=== PATIENT | female | born 1990 | race Caucasian/White ===

== ENCOUNTER → 2020-12-19 11:52 | Outpatient (CLI) | payer OTHER, SELFPAY ==
[2020-12-19 12:45] LABS: Hematocrit 42.2 % (36-46); Hemoglobin 13.7 g/dL (12.0-16.0); Mean Corpuscular HGB Conc 32.5 % (30-36); Mean Corpuscular Hemoglobin 28.1 PG (26-34); Mean Corpuscular Volume 86.2 fL (80-100); Platelet Count 255 X10^3/uL (150-400); Red Blood Cell Count 4.89 X10^6/uL (4.0-5.2); Red Cell Distribution Width 14.2 % (11.6-14.8); White Blood Cell Count 7.6 X10^3/uL (4.5-11.0)
[2020-12-19 12:56] LABS: Alanine Aminotransferase 15 IU/L (<35); Albumin 4.6 g/dL (3.5-5.0); Albumin Globulin Ratio 1.3 (1.0-2.8); Alkaline Phosphatase 52 U/L (38-126); Aspartate Aminotransferase 25 IU/L (14-36); BUN Creatinine Ratio 24.2 (6-22); Bilirubin Total 0.5 mg/dL (0.2-1.3); Blood Urea Nitrogen 16 mg/dL (7-17); Calcium 9.4 mg/dL (8.4-10.2); Carbon Dioxide 34 mmol/L (22-32); Chloride 100 mmol/L (98-107); Cholesterol 206 mg/dL (140-199); Estimated Glomerular Filt Rate > 60.0 mL/min (>60); Globulin 3.6 g/dL (1.7-4.1); Glucose 101 mg/dL (70-100); HDL Cholesterol 77 mg/dL (40-60); HEMOLYSIS < 15 (0-50); LDL Cholesterol Calculated 114 mg/dL (<100); Potassium 4.1 mmol/L (3.4-5.1); Sodium 136 mmol/L (137-145); Total Protein 8.2 g/dL (6.3-8.2); Triglycerides 75 mg/dL (35-150)
[2020-12-19 13:31] LABS: TSH w/ Reflex to FT4 1.92 uIU/mL (0.47-4.68)
== END ==
PROVIDERS: PCP Nurse Practitioner Family; Referring Provider Nurse Practitioner Family; Visit Provider Nurse Practitioner Family
DX: Z00.00 Encounter for general adult medical examination without abnormal findings (principal); F32.9 Major depressive disorder, single episode, unspecified; F41.9 Anxiety disorder, unspecified; Z13.6 Encounter for screening for cardiovascular disorders
CPT/HCPCS: 36415; 80053; 80061; 84443; 85027

== ENCOUNTER → 2021-03-19 11:26 | Outpatient (CLI) | payer OTHER, SELFPAY ==
[2021-03-19 12:30] LABS: COVID19 -Nasal RAPID Negative (Negative)
== END ==
PROVIDERS: PCP Nurse Practitioner Family; Visit Provider Physician Assistant
DX: J02.9 Acute pharyngitis, unspecified (principal)
CPT/HCPCS: 87070; 87077; 87147; 87635

== ENCOUNTER → 2021-04-29 16:00 | Outpatient (CLI) | payer OTHER, SELFPAY | PROVIDERS: PCP Nurse Practitioner Family; Referring Provider Family Medicine; Visit Provider Family Medicine | DX: J02.9 Acute pharyngitis, unspecified (principal) | CPT/HCPCS: 87070; 87077; 87147 ==

== ENCOUNTER → 2021-07-29 15:34 | Outpatient (CLI) | payer OTHER, SELFPAY ==
[2021-07-29 17:00] LABS: COVID19 -Nasal RAPID Negative (Negative)
== END ==
PROVIDERS: PCP Nurse Practitioner Family; Visit Provider Specialist
DX: Z01.812 Encounter for preprocedural laboratory examination (principal); Z20.822 Contact with and (suspected) exposure to COVID-19
CPT/HCPCS: 87635

== ENCOUNTER 2021-07-30 11:10 | Day surgery (SDC) | payer OTHER, SELFPAY ==
[2021-07-29 11:51] VITALS: BMI 21.2
[2021-07-30] VITALS (7 sets, daily range): BP systolic 90–99; BP diastolic 58–68; PULSE 55–74; RESP 12–16; TEMP 36.6–36.9; O2SAT 96–100; BMI 21.2
--- NOTE | 2021-07-30 | PATH_ITS ---
[facility] Accession Number: [id number] . 01 Material submitted: . product of conception - PRODUCTS OF CONCEPTION . 01 Diagnosis: Uterine Contents: Immature chorionic villi with hydropic degeneration. Decidua and gestational endometrium. Negative for changes diagnostic of gestational trophoblastic disease. [facility] 08/01/2021 1814 Local . 01 Electronically signed: . Monserrat Grijalva MD, Pathologist NPI- [id number] . 01 Gross description: . The specimen is received in formalin, labeled products of conception and consists of multiple gould-pink fragments of soft tissue measuring 6.0 x 3.0 x 1.5 cm in aggregate. Chorionic villi are identified. No parts are identified. Filling Machine Operator sections are submitted in cassettes A1-A2. ([id number]) /MRV 07/31/2021 0950 Local . 01 Pathologist provided ICD-10: O02.1 . 01 CPT . 965681 Performed at: 01 [facility] [address] [place] [address] [address], [place], [place] [id number] MD Chago Santoyo MD Phone: [phone]
--- NOTE | 2021-07-30 08:49 | P.HPOB_ITS ---
History of Present Illness History of Present Illness Reason for admission: incomplete Narrative: Janelle Godwin is a 31 year old female found to have a nonviable fetus by ultrasound here for suction D&C [facility] Medical History (Updated 07/26/21 @ 17:09 by Luana Berry MD) Anxiety Depression Pharyngitis Social History household members: spouse Smoking Status: Never smoker second hand exposure: No alcohol intake: current substance use type: does not use Meds Home Medications and Allergies Home Medications Medication Instructions Recorded Confirmed Type oxycodone-acetaminophen 5 mg-325 1 tab PO Q4-6H PRN #14 tab 07/26/21 07/29/21 Rx mg tablet Allergies Allergy/AdvReac Type Severity Reaction Status Date / Time No Known Drug Allergies Allergy Verified 07/30/21 11:25 Review of Systems Review of Systems Narrative: Patient with mild headache and mild nausea. No vaginal bleeding. Mild cramping. No fevers. ROS: Yes All systems reviewed with the patient and are negative except as otherwise documented Exam Narrative Exam Narrative: HEENT exam within normal limits. Lungs are clear to auscultation percussion. Heart is regular rate and rhythm no S3-S4 murmurs. Abdomen is soft, nontender. Normal external genitalia, vagina, cervix. Uterus is 6 week size. Extremities without edema Assessment & Plan Assessment and plan (1) Incomplete miscarriage: Status: Acute Assessment & Plan narrative: Suction D&C for incomplete miscarriage COVID-19 COVID-19 status: Negative Result date/Date tested (Pos, Neg/Pending): 07/29/21 Time Spent With Patient Critical Care time: I spent a total of [] minutes of critical care time on this patient's care today; this time is exclusive of procedural time.
[2021-07-30] MEDS: LACTATED RINGERS 1,000 ML 100 ML IV (11:43)
--- NOTE | 2021-07-30 12:15 | PM.PREOP ---
Pre-operative Note COVID-19 COVID-19 status: Negative Result date/Date tested (Pos, Neg/Pending): 07/29/21 Interval Note History & Physical reviewed/Exam performed by Physician: Yes Changes to H&P: No
--- NOTE | 2021-07-30 13:01 | SUR.OPER ---
Lithotomy on padded OR bed, head on pillow, arms secured on padded arm boards at <90 degrees abduction. Legs secured in padded yellow fins stirrups.
--- NOTE | 2021-07-30 13:40 | PM.OP.1 ---
Operative Date/Time/Diagnoses Date of procedure: 07/30/21 Time of procedure: 13:40 Pre-op diagnosis: Incomplete miscarriage Post-op diagnosis: same Procedure & Clinicians Procedure: Suction dilation and curettage Same procedure as scheduled: Yes Indications: Incomplete miscarriage approximately 6 7 weeks gestation Surgeon: Luana Berry Click Yes if Unassisted: Yes Anesthesia Type: General Operative Notes Findings: Normal exam under anesthesia. Retained products of conception. Uterine cavity felt normal during curettage. Closure Type: not applicable Specimen(s): other (Uterine contents) Estimated Blood Loss (mL): 50 Blood products transfused: none Procedure in detail: Patient was brought to the operating room where she underwent general anesthesia. She was placed in low Yellofin stirrups and prepped and draped in the usual sterile fashion. A check system was reviewed with the staff in the room prior to beginning the case. No antibiotics were indicated, warming was with blankets. Pulsatile stockings were in place and functional. The bladder was drained with in and out catheter. A single-tooth tenaculum was placed on the anterior lip of the cervix and the cervix was dilated to a #8 Hegar dilator. The # 7 suction curette was placed into the uterus through the cervix and tissue removed. A sharp curettage was performed and the suction curette replaced. The patient went to recovery room in good condition. Counts of instruments and sponges were correct. Complications: none Post-operative Condition: stable Disposition: same day surgery Plan for aftercare: Home when awake and stable. Follow-up in 2 weeks with follow-up ultrasound to be sure all tissue was removed.
--- NOTE | 2021-07-30 14:50 | SUR.PHASEII ---
Pt left unit when ready and left in stable condition.
== END 2021-07-30 14:40 | disposition home or self-care (01) ==
PROVIDERS: PCP Nurse Practitioner Family; Referring Provider Specialist; Visit Provider Specialist
PROC: (CPT 58120; principal; 2021-07-30 12:15)
DX: O03.4 Incomplete spontaneous abortion without complication (principal)
CPT/HCPCS: 59812; J1100; J1885; J2405; J2704; J3010

== ENCOUNTER → 2021-08-03 11:33 | Outpatient (CLI) | payer OTHER, SELFPAY ==
[2021-08-03 11:59] LABS: Appearance Urine UA CLEAR; Bilirubin Urine UA NEGATIVE (NEGATIVE); Color Urine UA YELLOW; Glucose Urine UA NEGATIVE (Negative); Ketones Urine UA NEGATIVE (NEGATIVE); Leukocyte Esterase Urine UA NEGATIVE (NEGATIVE); Nitrite Urine UA NEGATIVE (Negative); Occult Blood Urine UA TRACE-LYSED (Negative); Protein Urine UA NEGATIVE (Negative); Specific Gravity Urine UA 1.015 (1.000-1.035); Urobilinogen Urine UA 0.2 E.U./dL (0.2)
[2021-08-03 12:05] LABS: pH Urine UA 5.5 (4.5-8.0)
== END ==
PROVIDERS: PCP Nurse Practitioner Family; Referring Provider Obstetrics & Gynecology; Visit Provider Obstetrics & Gynecology
DX: N39.0 Urinary tract infection, site not specified (principal)
CPT/HCPCS: 81003

== ENCOUNTER → 2021-09-11 09:46 | Outpatient (CLI) | payer OTHER, SELFPAY ==
[2021-09-11 10:45] LABS: COVID19 -Nasal RAPID Negative (Negative)
== END ==
PROVIDERS: PCP Nurse Practitioner Family; Visit Provider Nurse Practitioner Family
DX: J02.9 Acute pharyngitis, unspecified (principal); Z20.822 Contact with and (suspected) exposure to COVID-19
CPT/HCPCS: 87070; 87077; 87147; 87635

== ENCOUNTER → 2021-09-15 10:03 | Outpatient (CLI) | payer OTHER, SELFPAY ==
[2021-09-15 10:52] LABS: COVID19 -Nasal RAPID Negative (Negative)
== END ==
PROVIDERS: PCP Nurse Practitioner Family; Visit Provider Physician Assistant
DX: Z20.822 Contact with and (suspected) exposure to COVID-19 (principal)
CPT/HCPCS: 87635

== ENCOUNTER → 2021-10-15 09:58 | Outpatient (CLI) | payer OTHER, SELFPAY ==
[2021-10-15 11:00] LABS: COVID19 -Nasal RAPID Negative (Negative)
[2021-10-15 11:40] LABS: Mean Corpuscular HGB Conc 33.5 % (30-36); Mean Corpuscular Volume 86.6 fL (80-100); White Blood Cell Count 7.2 X10^3/uL (4.5-11.0)
[2021-10-15 12:23] LABS: Thyroid Stimulating Hormone 3.02 uIU/mL (0.47-4.68)
== END ==
PROVIDERS: PCP Nurse Practitioner Family; Referring Provider Nurse Practitioner; Visit Provider Nurse Practitioner
DX: Z20.822 Contact with and (suspected) exposure to COVID-19 (principal); F32.9 Major depressive disorder, single episode, unspecified; F41.0 Panic disorder [episodic paroxysmal anxiety]; F41.9 Anxiety disorder, unspecified; R53.83 Other fatigue
CPT/HCPCS: 36415; 80053; 84439; 84443; 84481; 85025; 87635

== ENCOUNTER → 2022-04-21 15:08 | Outpatient (CLI) | payer OTHER, SELFPAY ==
[2022-04-21 17:45] LABS: Free T4, Direct Thyroxine 1.09 ng/dL (0.78-2.19)
[2022-04-21 17:59] LABS: Thyroid Stimulating Hormone 3.41 uIU/mL (0.47-4.68)
[2022-04-21 22:48] LABS: Follicle Stimulating Hormone 2.84 mIU/mL; Luteinizing Hormone 4.79 mIU/mL
== END ==
PROVIDERS: PCP Nurse Practitioner Family; Referring Provider Obstetrics & Gynecology; Visit Provider Obstetrics & Gynecology
DX: N97.0 Female infertility associated with anovulation (principal)
CPT/HCPCS: 36415; 83001; 83002; 84439; 84443

== ENCOUNTER → 2022-05-29 16:00 | Outpatient (CLI) | payer OTHER, SELFPAY ==
[2022-05-29 17:33] LABS: HCG Quantitative /Beta subunit 30.6 mIU/mL
== END ==
PROVIDERS: PCP Nurse Practitioner Family; Referring Provider Obstetrics & Gynecology; Visit Provider Obstetrics & Gynecology
DX: N97.0 Female infertility associated with anovulation (principal); N91.2 Amenorrhea, unspecified
CPT/HCPCS: 36415; 84144; 84702

== ENCOUNTER → 2022-06-02 12:08 | Outpatient (CLI) | payer OTHER, SELFPAY ==
[2022-06-02 13:37] LABS: HCG Quantitative /Beta subunit 239.9 mIU/mL
== END ==
PROVIDERS: PCP Nurse Practitioner Family; Referring Provider Obstetrics & Gynecology; Visit Provider Obstetrics & Gynecology
DX: Z34.90 Encounter for supervision of normal pregnancy, unspecified, unspecified trimester (principal)
CPT/HCPCS: 36415; 84702

== ENCOUNTER → 2022-06-09 14:02 | Outpatient (CLI) | payer OTHER, SELFPAY ==
[2022-06-09 16:19] LABS: HCG Quantitative /Beta subunit 6357.4 mIU/mL
== END ==
PROVIDERS: PCP Nurse Practitioner Family; Referring Provider Obstetrics & Gynecology; Visit Provider Obstetrics & Gynecology
DX: O36.80X0 Pregnancy with inconclusive fetal viability, not applicable or unspecified (principal)
CPT/HCPCS: 36415; 84702

== ENCOUNTER → 2022-06-11 15:35 | Outpatient (CLI) | payer OTHER, SELFPAY ==
[2022-06-11 17:24] LABS: HCG Quantitative /Beta subunit 11574 mIU/mL
== END ==
PROVIDERS: PCP Registered Nurse Diabetes Educator; Referring Provider Obstetrics & Gynecology; Visit Provider Obstetrics & Gynecology
DX: N91.2 Amenorrhea, unspecified (principal)
CPT/HCPCS: 36415; 84702

== ENCOUNTER → 2022-07-22 09:39 | Outpatient (CLI) | payer OTHER, SELFPAY | PROVIDERS: PCP Registered Nurse Diabetes Educator; Referring Provider Obstetrics & Gynecology; Visit Provider Obstetrics & Gynecology | DX: Z34.81 Encounter for supervision of other normal pregnancy, first trimester (principal) | CPT/HCPCS: 36415 ==

== ENCOUNTER → 2022-08-21 14:39 | Outpatient (CLI) | payer OTHER, SELFPAY ==
[2022-08-21 15:13] LABS: Appearance Urine UA CLEAR; Bilirubin Urine UA NEGATIVE (NEGATIVE); Color Urine UA YELLOW; Glucose Urine UA NEGATIVE (Negative); Ketones Urine UA NEGATIVE (NEGATIVE); Leukocyte Esterase Urine UA TRACE (NEGATIVE); Nitrite Urine UA NEGATIVE (Negative); Occult Blood Urine UA NEGATIVE (Negative); Protein Urine UA NEGATIVE (Negative); Urobilinogen Urine UA 0.2 E.U./dL (0.2)
[2022-08-21 15:34] LABS: Add Manual Diff / Slide Review NO; Basophils Absolute Auto 0 /uL (0-100); Basophils Percent Auto 0.3 % (0-2); Eosinophils Absolute Auto 200 /uL (0-450); Eosinophils Percent Auto 1.3 % (2-4); Hematocrit 36.3 % (36-46); Hemoglobin 12.3 g/dL (12.0-16.0); Lymphocytes Absolute Auto 2100 /uL (1100-4500); Lymphocytes Percent Auto 17.4 % (25-40); Mean Corpuscular HGB Conc 33.9 % (30-36); Mean Corpuscular Volume 88.5 fL (80-100); Monocytes Absolute Auto 800 /uL (0-900); Monocytes Percent Auto 6.8 % (3-14); Neutrophils Absolute Auto 8800 /uL (1500-7000); Neutrophils Percent Auto 74.2 % (50-75); Platelet Count 239 X10^3/uL (150-400); Red Cell Distribution Width 13.6 % (11.6-14.8); White Blood Cell Count 11.8 X10^3/uL (4.5-11.0)
[2022-08-21 15:41] LABS: RBC Urine None Seen (0-5/HPF); Squamous Epithelial Cell Urine 5-10 /HPF (0-5/HPF); WBC Urine 0-1/HPF (0-5/HPF)
[2022-08-21 15:42] LABS: Bacteria Urine Many (>30); Culture Indicated Urine Specimen Cultured
[2022-08-21 16:37] LABS: Hepatitis B Surface Antigen NEGATIVE s/c (NEGATIVE); Rubella Antibody IgG 2.7 IU/mL (>15)
[2022-08-21 16:54] LABS: HIV 1 & 2 Ab/Ag 4th Gen Combo NEGATIVE (NEGATIVE); Hep C Virus Ab w/Reflex Quant NEGATIVE s/c (NEGATIVE)
[2022-08-23 06:56] LABS: RPR Screen Non Reactive (Non Reactive)
[2022-08-23 09:36] LABS: Varicella IgG Antibody <135 index (Immune >165)
== END ==
PROVIDERS: PCP Registered Nurse Diabetes Educator; Referring Provider Obstetrics & Gynecology; Visit Provider Obstetrics & Gynecology
DX: Z34.81 Encounter for supervision of other normal pregnancy, first trimester (principal)
CPT/HCPCS: 36415; 80055; 81003; 81015; 86787; 86803; 86850; 86900; 86901; 87086; 87389

== ENCOUNTER → 2022-09-02 08:47 | Outpatient (CLI) | payer OTHER, SELFPAY ==
[2022-09-02 15:26] LABS: Urine N gonorrhoeae NOT DETECTED
[2022-09-02 15:41] LABS: Urine Chlamydia NOT DETECTED
== END ==
PROVIDERS: PCP Registered Nurse Diabetes Educator; Visit Provider Obstetrics & Gynecology
DX: Z34.82 Encounter for supervision of other normal pregnancy, second trimester (principal); Z3A.17 17 weeks gestation of pregnancy
CPT/HCPCS: 87491; 87591

== ENCOUNTER → 2022-09-02 09:05 | Outpatient (CLI) | payer OTHER, SELFPAY ==
[2022-09-04 21:37] LABS: Gest Age on Col Date 20.6 weeks (.); Insulin Dep Diabetes No (.); OSBR Risk 1IN 10000 (.); Results Report (.); Test Results *Screen Negative* (.)
== END ==
PROVIDERS: PCP Registered Nurse Diabetes Educator; Referring Provider Obstetrics & Gynecology; Visit Provider Obstetrics & Gynecology
DX: Z34.82 Encounter for supervision of other normal pregnancy, second trimester (principal); Z3A.17 17 weeks gestation of pregnancy
CPT/HCPCS: 36415; 82105; 87491; 87591

== ENCOUNTER → 2022-09-15 07:03 | Outpatient (CLI) | payer OTHER, SELFPAY ==
--- NOTE | 2022-09-15 07:05 | DI.US.S_ITS ---
PROCEDURE: US OB >= 14 WEEKS FETUS INDICATIONS: ANATOMY OUTSIDE/PRIOR DATING DATA: Last menstrual period (LMP): 04/28/2022 LMP-based estimated date of delivery (KIRSTIN): 02/02/2023 First dating scan (date and location): 07/03/2022 Estimated date of delivery (KIRSTIN) from first dating scan: 02/07/2023 The calculations are made using the working KIRSTIN of 02/07/2023. TECHNIQUE: Real-time scanning was performed of the fetus, with image documentation and biometric measurements. Endovaginal scanning: Not indicated COMPARISON: [facility], , OB >= 14 WEEKS FETUS, 09/02/2022, 9:04. FINDINGS: General: A single living intrauterine gestation is present. Presentation: Breech Placenta: Placental position is anterior, without previa. Amniotic fluid index: 13.0 cm, normal range is 5-24 cm. Single deepest vertical pocket is 3.6 cm. heart rate: 145 beats per minute. Maternal cervical canal: 4.0 cm long. Normal lower limit is 2.5 cm. biometrics: Biparietal diameter: 4.4 cm, 19 weeks, 2 days. Head circumference: 16.7 cm, 19 weeks, 3 days. Abdominal circumference: 14.8 cm, 20 weeks, 1 day. Femur length: 2.7 cm, 18 weeks, 3 days. Clinically estimated gestational age: 19 weeks, 2 days. Composite gestational age from present scan: 19 weeks, 2 days. Estimated weight and percentile: 285 g, 46%. Anatomic survey: Neuro: Ventricles are non-dilated at less than 10 mm. Cisterna magna is normal at 3-11 mm. Cerebellum is normal in size and morphology. Nuchal skin fold: Normal at less than 6 mm between 14-21 weeks gestational age. Face: Nose and lips, facial profile are normal. Spine: No evidence for spina bifida. Heart: 4-chambered heart is present, with normal ventricular outflow tracts. Diaphragm: Diaphragm is intact. Stomach: Left-sided stomach is present. Kidneys: No hydronephrosis. Normal is less than 5 mm in 2nd trimester, less than 7 mm in 3rd trimester. Cord: 3-vessel cord has orthotopic insertion. Bladder: Normal in size. Extremities: All 4 extremities identified. IMPRESSION: 1. Single live intrauterine gestation with fetus in breech presentation. heart rate is 145 beats per minute. Normal amount of amniotic fluid. Normal growth. Estimated weight is at 46%. 2. Normal anatomic survey. We strive to produce accurate, complete, and clear reports of imaging services. To assist us in improving patient care, this report was composed using standard report templates and voice recognition software. Therefore, it may contain abnormal punctuation, insertions and/or omissions. Occasional wrong-word or sound-alike substitutions may occur. Though we review the report and make efforts to correct it, we do recommend that the report be read carefully in proper context to recognize any text inaccuracies. Dictated by: Axel Silva M.D. on 09/15/2022 at 9:27 Approved by: Axel Silva M.D. on 09/15/2022 at 9:29
== END ==
PROVIDERS: PCP Registered Nurse Diabetes Educator; Referring Provider Obstetrics & Gynecology; Visit Provider Obstetrics & Gynecology
DX: Z34.82 Encounter for supervision of other normal pregnancy, second trimester (principal); Z3A.19 19 weeks gestation of pregnancy
CPT/HCPCS: 76811

== ENCOUNTER → 2022-10-17 09:02 | Outpatient (CLI) | payer OTHER, SELFPAY ==
[2022-10-17 12:04] LABS: Hematocrit 34.7 % (36-46); Hemoglobin 11.5 g/dL (12.0-16.0)
[2022-10-17 12:57] LABS: GTT (PREG) 1 Hour PP 50gm Dose 98 mg/dL (76-139)
== END ==
PROVIDERS: PCP Registered Nurse Diabetes Educator; Referring Provider Obstetrics & Gynecology; Visit Provider Obstetrics & Gynecology
DX: Z34.82 Encounter for supervision of other normal pregnancy, second trimester (principal); Z3A.26 26 weeks gestation of pregnancy
CPT/HCPCS: 82950; 85014; 85018